=== PATIENT | female | born 1950 | race Caucasian/White ===

== ENCOUNTER 2023-01-12 13:45 | Inpatient (IN) ==
[2023-01-12 14:37] LABS: Hematocrit 24.8 % (35-45); Hemoglobin 8.4 g/dL (11.5-14.3); Mean Corpuscular Hemoglobin 30.5 pg (27-33); Mean Corpuscular Hgb Conc 33.7 g/dL (31-36); Mean Corpuscular Volume 90.5 fL (80-97); Platelet Count 31 10^3/uL (150-450); Red Blood Count 2.74 10^6/uL (3.63-4.92); Red Cell Distribution Width 17.2 % (12-17)
[2023-01-12 14:55] LABS: Potassium 3.1 mmol/L (3.5-5.0)
[2023-01-12 14:56] LABS: Albumin 2.8 g/dL (3.2-5.2); Calcium 8.3 mg/dL (8.6-10.3); Total Bilirubin 0.8 mg/dL (0.2-1.0)
[2023-01-12 15:02] LABS: Albumin/Globulin Ratio 1.2 (1-3); Creatinine, Serum 0.55 mg/dL (0.51-0.95); Globulin 2.3 g/dL (2-4); Total Protein 5.1 g/dL (6.4-8.9); eGFR CKD-EPI 96.7 (>60)
[2023-01-12 15:45] LABS: Anisocytosis 1+
[2023-01-12 15:46] LABS: Toxic Granulation 1+
[2023-01-12 15:47] LABS: ABS Monocytes 0.2 10^3/uL (0.0-0.9); ABS Neutrophils 1.7 10^3/uL (1.5-7.6); Dohle Bodies Present; Eosinophil % 0.5 %; Lymphocyte % 1.5 %; Nucleated Red Blood Cells % 0.1 /100 WBC (0.0-0.4)
[2023-01-12] MEDS ORDERED: Lactated Ringers 1000 ml BAG 1,000 ML IV ONE (16:31)
[2023-01-12] MEDS ORDERED: Iohexol 350 (CONTRAST) 500 ML MDV IV ONE (16:35)
[2023-01-12] MEDS: Heparin 5000 UNITS/ML 1 mL VIAL IV PRN (18:51)
[2023-01-12] MEDS: Heparin DRIP 25,000 UNITS BAG 25,000 UNITS/500 ML BAG IV SCH (18:52)
[2023-01-12] MEDS ORDERED: NS 0.9% 1000 ml BAG 1,000 ML IV SCH (20:15)
[2023-01-12 21:37] LABS: Magnesium 1.8 mg/dL (1.9-2.7)
[2023-01-13] MEDS: KCL 20 MEQ/100 ML IVPREMIX 20 MEQ/100 ML BAG IV SCH ×2 (00:04→03:20)
[2023-01-13 06:19] LABS: Hematocrit 20.8 % (35-45); Hemoglobin 7.1 g/dL (11.5-14.3); Mean Corpuscular Hemoglobin 30.8 pg (27-33); Mean Corpuscular Hgb Conc 33.9 g/dL (31-36); Mean Corpuscular Volume 90.7 fL (80-97); Mean Platelet Volume 9.4 fL (7.5-11.2); Platelet Count 45 10^3/uL (150-450); Red Cell Distribution Width 17.4 % (12-17); White Blood Count 3.4 10^3/uL (3.8-11.8)
[2023-01-13 06:27] LABS: Calcium 7.7 mg/dL (8.6-10.3); Creatinine, Serum 0.41 mg/dL (0.51-0.95); Potassium 3.1 mmol/L (3.5-5.0); eGFR CKD-EPI 103.8 (>60)
[2023-01-13 06:32] LABS: ABS Lymphocytes 0.1 10^3/uL (1.0-4.8); ABS Monocytes 0.3 10^3/uL (0.0-0.9); Eosinophil % 0.9 %; Lymphocyte % 1.9 %; Nucleated Red Blood Cells % 0.1 /100 WBC (0.0-0.4)
[2023-01-13] MEDS: Heparin DRIP 25,000 UNITS BAG 25,000 UNITS/500 ML BAG IV SCH (14:39)
[2023-01-13] MEDS ORDERED: Potassium Chlor 20 meq TAB.ER PO ONE (17:58)
[2023-01-13] MEDS ORDERED: Magnesium Sulfate 2 gm BAG 2 GM/50 ML BAG IVPB ONE (17:59)
[2023-01-13] MEDS: Heparin 5000 UNITS/ML 1 mL VIAL IV PRN (21:02)
[2023-01-14 05:37] LABS: Hematocrit 19.9 % (35-45); Hemoglobin 6.9 g/dL (11.5-14.3); Mean Corpuscular Hemoglobin 31.8 pg (27-33); Mean Corpuscular Hgb Conc 34.9 g/dL (31-36); Mean Corpuscular Volume 91.2 fL (80-97); Mean Platelet Volume 9.1 fL (7.5-11.2); Platelet Count 69 10^3/uL (150-450); Red Blood Count 2.19 10^6/uL (3.63-4.92); Red Cell Distribution Width 17.9 % (12-17); White Blood Count 4.6 10^3/uL (3.8-11.8)
[2023-01-14 05:56] LABS: Calcium 7.8 mg/dL (8.6-10.3); Creatinine, Serum 0.38 mg/dL (0.51-0.95); Magnesium 2.1 mg/dL (1.9-2.7); Potassium 3.1 mmol/L (3.5-5.0); eGFR CKD-EPI 105.7 (>60)
[2023-01-14] MEDS ORDERED: Potassium Chlor 20 meq TAB.ER PO ONE (07:10)
[2023-01-14 09:24] LABS: ABS Lymphocytes 0.1 10^3/uL (1.0-4.8); ABS Monocytes 0.5 10^3/uL (0.0-0.9); ABS Neutrophils 3.9 10^3/uL (1.5-7.6); Eosinophil % 0.7 %; Lymphocyte % 1.6 %; Nucleated Red Blood Cells % 0.1 /100 WBC (0.0-0.4)
[2023-01-14 10:08] LABS: Hematocrit 23.6 % (35-45)
[2023-01-14] MEDS: Heparin DRIP 25,000 UNITS BAG 25,000 UNITS/500 ML BAG IV SCH (10:36)
[2023-01-14] MEDS ORDERED: NS 0.9% 500 ml BAG 500 ML IV ONE (14:32)
[2023-01-15] MEDS: Heparin DRIP 25,000 UNITS BAG 25,000 UNITS/500 ML BAG IV SCH (02:40)
[2023-01-15 06:18] LABS: Hemoglobin 7.1 g/dL (11.5-14.3); Mean Corpuscular Hemoglobin 31.4 pg (27-33); Mean Corpuscular Hgb Conc 33.9 g/dL (31-36); Mean Corpuscular Volume 92.8 fL (80-97); Mean Platelet Volume 8.9 fL (7.5-11.2); Platelet Count 105 10^3/uL (150-450); Red Blood Count 2.26 10^6/uL (3.63-4.92); Red Cell Distribution Width 18.4 % (12-17); White Blood Count 4.8 10^3/uL (3.8-11.8)
[2023-01-15 06:33] LABS: Calcium 7.7 mg/dL (8.6-10.3); Creatinine, Serum 0.45 mg/dL (0.51-0.95); Magnesium 1.9 mg/dL (1.9-2.7); Potassium 3.6 mmol/L (3.5-5.0); eGFR CKD-EPI 101.5 (>60)
[2023-01-15 06:55] LABS: ABS Lymphocytes 0.1 10^3/uL (1.0-4.8); ABS Monocytes 0.7 10^3/uL (0.0-0.9); ABS Nucleated RBC 0.01 10^3/ul; Eosinophil % 0.3 %; Lymphocyte % 1.9 %; Nucleated Red Blood Cells % 0.1 /100 WBC (0.0-0.4)
[2023-01-15 17:37] LABS: Hematocrit 20.4 % (35-45); Hemoglobin 6.9 g/dL (11.5-14.3)
[2023-01-16 05:53] LABS: Hematocrit 19.9 % (35-45); Hemoglobin 6.7 g/dL (11.5-14.3); Mean Corpuscular Hemoglobin 31.2 pg (27-33); Mean Corpuscular Hgb Conc 33.6 g/dL (31-36); Mean Corpuscular Volume 92.9 fL (80-97); Mean Platelet Volume 8.4 fL (7.5-11.2); Platelet Count 125 10^3/uL (150-450); Red Blood Count 2.14 10^6/uL (3.63-4.92); Red Cell Distribution Width 17.9 % (12-17); White Blood Count 4.8 10^3/uL (3.8-11.8)
[2023-01-16 06:10] LABS: Calcium 7.6 mg/dL (8.6-10.3); Creatinine, Serum 0.44 mg/dL (0.51-0.95); Potassium 3.3 mmol/L (3.5-5.0); eGFR CKD-EPI 102.1 (>60)
[2023-01-16] MEDS ORDERED: Potassium Chlor 20 meq TAB.ER PO ONE (07:03)
[2023-01-16 14:15] LABS: Hematocrit 28.3 % (35-45); Hemoglobin 9.6 g/dL (11.5-14.3)
[2023-01-16 15:13] LABS: Magnesium 1.9 mg/dL (1.9-2.7)
[2023-01-17 05:19] LABS: Hematocrit 23.1 % (35-45); Hemoglobin 7.9 g/dL (11.5-14.3); Mean Corpuscular Hemoglobin 31.6 pg (27-33); Mean Corpuscular Hgb Conc 34.1 g/dL (31-36); Mean Corpuscular Volume 92.7 fL (80-97); Mean Platelet Volume 8.3 fL (7.5-11.2); Platelet Count 150 10^3/uL (150-450); Red Blood Count 2.49 10^6/uL (3.63-4.92); Red Cell Distribution Width 17.7 % (12-17); White Blood Count 5.1 10^3/uL (3.8-11.8)
[2023-01-17 05:35] LABS: Albumin 2.1 g/dL (3.2-5.2); Albumin/Globulin Ratio 1.2 (1-3); Calcium 7.7 mg/dL (8.6-10.3); Creatinine, Serum 0.41 mg/dL (0.51-0.95); Globulin 1.7 g/dL (2-4); Magnesium 1.7 mg/dL (1.9-2.7); Potassium 3.5 mmol/L (3.5-5.0); Total Bilirubin 0.5 mg/dL (0.2-1.0); Total Protein 3.8 g/dL (6.4-8.9); eGFR CKD-EPI 103.8 (>60)
[2023-01-17] MEDS ORDERED: Magnesium Sulfate 2 gm BAG 2 GM/50 ML BAG IVPB ONE (06:31)
[2023-01-17 07:22] LABS: Anisocytosis 1+; Hypochromasia 1+; Polychromasia 1+
[2023-01-17 07:23] LABS: ABS Lymphocytes 0.1 10^3/uL (1.0-4.8); ABS Monocytes 0.8 10^3/uL (0.0-0.9); ABS Neutrophils 4.2 10^3/uL (1.5-7.6); ABS Nucleated RBC 0.01 10^3/ul; Eosinophil % 0.1 %; Lymphocyte % 1.7 %; Nucleated Red Blood Cells % 0.1 /100 WBC (0.0-0.4)
[2023-01-17 10:23] LABS: Hematocrit 26.7 % (35-45)
[2023-01-18 05:42] LABS: Hemoglobin 8.4 g/dL (11.5-14.3); Mean Corpuscular Hemoglobin 31.6 pg (27-33); Mean Corpuscular Hgb Conc 34.7 g/dL (31-36); Mean Corpuscular Volume 90.9 fL (80-97); Mean Platelet Volume 8.2 fL (7.5-11.2); Platelet Count 193 10^3/uL (150-450); Red Blood Count 2.64 10^6/uL (3.63-4.92); Red Cell Distribution Width 17.2 % (12-17); White Blood Count 5.2 10^3/uL (3.8-11.8)
[2023-01-18 05:44] LABS: ABS Lymphocytes 0.2 10^3/uL (1.0-4.8); ABS Monocytes 0.9 10^3/uL (0.0-0.9); ABS Neutrophils 4.1 10^3/uL (1.5-7.6); Eosinophil % 0.1 %; Lymphocyte % 2.9 %; Nucleated Red Blood Cells % 0.1 /100 WBC (0.0-0.4)
[2023-01-18 05:57] LABS: Albumin 2.3 g/dL (3.2-5.2); Albumin/Globulin Ratio 1.2 (1-3); Calcium 7.6 mg/dL (8.6-10.3); Creatinine, Serum 0.44 mg/dL (0.51-0.95); Globulin 1.9 g/dL (2-4); Potassium 3.6 mmol/L (3.5-5.0); Total Bilirubin 0.4 mg/dL (0.2-1.0); Total Protein 4.2 g/dL (6.4-8.9); eGFR CKD-EPI 102.1 (>60)
[2023-01-18 13:10] VITALS: BP 96/55
== END 2023-01-18 14:15 | disposition left against medical advice (07) | DRG 175 ==
LOC: ED 13:45 → SUATTDRO 19:35 → EDHOLD 19:35 → MED 01-14 09:14
PROVIDERS: ADMIT Internal Medicine Hematology & Oncology; ATTEND Hospitalist